=== PATIENT | male | born 1945 | race Caucasian/White ===

== ENCOUNTER 2017-04-20 17:54 | Emergency (ER) | payer MEDICARE, BC ==
--- NOTE | 2017-04-20 18:45 | Emergency Department Record ---
History of Present Illness - General Chief complaint: Rectal bleeding Stated complaint: RECTAL BLEEDING Time Seen by Provider: 04/20/17 18:41 Source: Patient Mode of Arrival: Ambulatory Limitations: No limitations - History of Present Illness Initial comments: 72 yo male presents to ED with a CC of "pink on the toilet paper when I wiped this evening". Patient denies rectal pain, bleeding with stool, or weakness symptoms. Patient reports that he was recently admitted to [facility] for a "mild heart attack", was checked for blood in the stool on 04/15 as part of an anemia evaluation which was negative. Patient is taking aspirin and plavix following his heart attack. complaint: Blood on toilet paper Onset/Timin -: Days(s) Radiation: None Severity scale (1-10): 2 Consistency: Intermittent Improves with: None Worsens with: None Associated Symptoms: Denies other symptoms - Related Data Home Medications Medication Instructions Recorded Confirmed Last Taken Amlodipine Besylate [Norvasc] 5 mg PO DAILY 07/31/14 04/20/17 1 Day Ago ~04/19/17 Aspirin Chewable 81 mg PO DAILY 07/31/14 04/20/17 1 Day Ago ~04/19/17 Atorvastatin Calcium [Lipitor] 20 mg PO QHS 07/31/14 04/20/17 1 Day Ago ~04/19/17 Hydrochlorothiazide 25 mg PO DAILY 07/31/14 04/20/17 1 Day Ago [Hydrochlorothiazide] ~04/19/17 Losartan Potassium [Losartan 100 mg PO DAILY 07/31/14 04/20/17 1 Day Ago Potassium] ~04/19/17 Nitroglycerin [Nitrodur] 1 ea SL ASDIR 07/31/14 04/20/17 1 Day Ago ~04/19/17 Omeprazole [Omeprazole] 40 mg PO DAILY 07/31/14 04/20/17 1 Day Ago ~04/19/17 Citalopram Hydrobromide 40 mg PO DAILY 04/27/16 04/20/17 1 Day Ago [Citalopram HBr] ~04/19/17 Clopidogrel Bisulfate [Plavix] 75 mg PO DAILY 04/27/16 04/20/17 1 Day Ago ~04/19/17 Colestipol HCl 1 gm PO DAILY 04/27/16 04/20/17 1 Day Ago ~04/19/17 Donepezil HCl [Aricept] 10 mg PO DAILY 04/20/17 04/20/17 1 Day Ago ~04/19/17 Hydrocodone/Acetaminophen [[place] 1 each PO QID PRN 04/20/17 04/20/17 1 Day Ago 10-325 Tablet] ~04/19/17 Allergies Allergy/AdvReac Type Severity Reaction Status Date / Time Penicillins [PENICILLINS] Allergy Unknown PT UNSURE Verified 04/20/17 18:19 OF REACTION theophylline anhydrous Allergy Unknown PT UNSURE Verified 04/20/17 18:19 [From RAVEN-DUR] OF REACTION lemon oil Allergy ITCHING Verified 04/20/17 18:19 Sulfa (Sulfonamide Allergy PT UNSURE Verified 04/20/17 18:19 Antibiotics) OF REACTION Travel Screening - Travel/Exposure Within Last 30 Days Have you traveled within the last 30 days?: No - Travel/Exposure Within Last Year Have you traveled outside the [place] in the last year?: No - Additonal Travel Details Have you been exposed to anyone with a communicable illness?: No - Travel Symptoms Symptom Screening: None Review of Systems Constitutional: Denies: Chills, Fever, Malaise, Night sweats Eyes: Denies: Eye discharge, Eye pain ENT: Denies: Congestion, Ear pain, Epistaxis Respiratory: Denies: Cough, Dyspnea Cardiovascular: Denies: Chest pain, Dyspnea on exertion Endocrine: Denies: Fatigue, Heat or cold intolerance Gastrointestinal: Denies: Abdominal pain, Hematochezia, Nausea, Vomiting Genitourinary: Denies: Incontinence, Retention Musculoskeletal: Denies: Arthralgia, Back pain, Gout, Joint swelling Skin: Denies: Bruising Neurological: Denies: Abnormal gait, Confusion, Headache, Tingling Psychiatric: Denies: Anxiety Hematological/Lymphatic: Denies: Anemia, Blood Clots Past Medical History - SOCIAL HISTORY Smoking Status: Former smoker Alcohol Use: None Drug Use: None - RESPIRATORY Hx Respiratory Disorders: No Hx COPD: Yes - CARDIOVASCULAR Hx Cardio Disorders: Yes Hx Heart Attack: Yes (x7) Hx Hypertension: Yes - NEURO Hx Neuro Disorders: No - GI Hx GI Disorders: Yes Hx Reflux: Yes - Hx Genitourinary Disorders: No - ENDOCRINE Hx Endocrine Disorders: No - MUSCULOSKELETAL Hx Musculoskeletal Disorders: No - PSYCH Hx Psych Problems: No - HEMATOLOGY/ONCOLOGY Hx Hematology/Oncology Disorders: No Family Medical History Any Significant Family History?: Yes Hx Heart Disease: Mother, Brother/Sister Physical Exam - General General Appearance: Alert, Oriented x3, Cooperative, No acute distress Limitations: No limitations - Head Head exam: Atraumatic, Normocephalic, Normal inspection Head exam detail: negative: Abrasion, Contusion, Don's sign, General tenderness, Hematoma, Laceration - Eye Eye exam: Normal appearance. negative: Conjunctival injection, Periorbital swelling, Periorbital tenderness, Scleral icterus - ENT Ear exam: negative: Auricular hematoma, Auricular trauma Nasal Exam: negative: Active bleeding, Discharge, Dried blood, Foreign body Mouth exam: negative: Drooling, Laceration, Muffled voice, Tongue elevation - Neck Neck exam: Normal inspection. negative: Meningismus, Tenderness - Respiratory Respiratory exam: Normal lung sounds bilaterally. negative: Respiratory distress, Rhonchi, Stridor, Wheezes - Cardiovascular Cardiovascular Exam: Regular rate, Normal rhythm, Normal heart sounds - GI/Abdominal GI/Abdominal exam: Soft. negative: Distended, Rebound, Rigid, Tenderness - Rectal Rectal exam: Heme (-) stool. negative: Hemorrhoids - Extremities Extremities exam: negative: Pedal edema, Tenderness - Back Back exam: Denies: CVA tenderness (R), CVA tenderness (L) - Neurological Neurological exam: Alert, Normal gait, Oriented X3 - Psychiatric Psychiatric exam: Normal affect, Normal mood - Skin Skin exam: Normal color. negative: Abrasion Type of lesion: negative: abrasion Course Vital Signs 04/20/17 18:13 Temperature 97.8 F Pulse Rate [ 45 L Pulse Ox Probe] Respiratory 18 Rate Blood Pressure 136/81 [Right Arm] Pulse Ox 95 - Reevaluation(s) Reevaluation #1: 04/20/17 19:18 Labs reviewed, Hgb 13.9, labs are otherwise grossly unremarkable for an acute process. Patient up to the bathroom numerous times without weakness or dizziness, labs reviewed with patient and his and appears improved from previous. Patient reports that he is ready to go home, and appears stable for discharge at this time. Medical Decision Making - Lab Data Result diagrams: 04/20/17 18:48 04/20/17 18:48 Disposition Disposition: Discharge Clinical Impression: Bright red blood per rectum Disposition: Home, Self-Care Condition: (2) Stable Instructions: Rectal Bleeding (ED) Additional Instructions: Return to ED if your symptoms worsen or if you have any concerns. Follow-up with your family doctor in 3-5 days as directed. Forms: Patient Portal Access Time of Disposition: 19:19
[2017-04-20 18:59] LABS: BASO % 1.1 % (0-6); EOS % 6.9 % (0-6); GRAN % 48.4 % (47-80); HEMATOCRIT 42.5 % (42.0-52.0); HEMOGLOBIN 13.9 gm/dl (14.0-18.0); LYMPH % 32.9 % (16-45); MEAN CELL VOLUME 88.2 fl (81-97); MEAN CORPUSCULAR HEMOGLOBIN 28.8 pg (27-33); MEAN CORPUSCULAR HGB CONC 32.7 g/dl (32-36); MEAN PLATELET VOLUME 9.4 fl (7.4-10.4); MONO % 10.7 % (0-9); PLATELET COUNT 271 K/uL (130-400); RED BLOOD COUNT 4.82 M/uL (4.40-5.70); RED CELL DISTRIBUTION WIDTH 13.7 % (11.5-14.5); WHITE BLOOD COUNT W/O DIFF 5.2 K/uL (4.2-12.2)
[2017-04-20 19:12] LABS: ALB/GLOB RATIO 1.3 (1.1-1.8); ALBUMIN 3.8 gm/dL (3.5-5.0); ALKALINE PHOSPHATASE 68 U/L (38-126); ALT/SGPT 25 U/L (21-72); ANION GAP 5.6 (7-16); AST/SGOT 15 U/L (17-59); BILIRUBIN,TOTAL 0.86 mg/dL (0.2-1.3); BLOOD UREA NITROGEN 21 mg/dL (9-20); CARBON DIOXIDE 25.4 mmol/L (22-30); EST GLOMERULAR FILTRATION RATE > 60 ml/min; GLUCOSE,RANDOM 79 mg/dL (70-110); TOTAL PROTEIN 6.7 gm/dL (6.3-8.2)
== END 2017-04-20 19:20 | disposition home or self-care (01) ==
LOC: ER 17:54
DX: K62.5 Hemorrhage of anus and rectum (principal); J44.9 Chronic obstructive pulmonary disease, unspecified; I10 Essential (primary) hypertension; I25.2 Old myocardial infarction; Z79.02 Long term (current) use of antithrombotics/antiplatelets; Z87.891 Personal history of nicotine dependence
CPT/HCPCS: 80053; 85025; 99283

== ENCOUNTER 2017-10-28 19:47 | Observation (INO) | payer MEDICARE, BC ==
[2017-10-28] MEDS ORDERED: 0.9 % SODIUM CHLORIDE 1000ML 1,000 ML IV ONE (19:52)
--- NOTE | 2017-10-28 19:59 | Emergency Department Record ---
History of Present Illness - General Stated Complaint: SYNCOPY Time Seen by Provider: 10/28/17 19:51 Source: Patient, Family, EMS Mode of Arrival: Ambulatory Limitations: No limitations - History of Present Illness Initial Comments: 72 yo male presents after a syncopal spell at home. He was walking in his bedroom and passed out. The patient has memory issues and he does not recall the event. The witnessed the event. The patient had just gone to the bathroom. She reports that he vomited once in the bathroom. He was walking out of the bathroom past the bed and slumped over. She states she estimated he was "out of it" for about 2 minutes. No shaking or seizure. No vomiting or incontinence. No cyanosis or loss of breathing. He stated to EMS his low abdomen was painful. At this time he states he does not have any pain or complaints. His states he did have a few loose stools today as well. PCP Maggie Ellington. He does have a history of CAD with chronic bradycardia the last several years. His baseline HR is about 45 per the family. 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 Complaint: Collapsed, Other (abdominal pain) -: Minutes(s) Prodromal Symptoms: Nausea/vomiting Description of Event: Other (slumped over) -: Minutes(s) (2) Injuries Sustained Associated with Event: None Current Symptoms: None History: History of CAD Treatments Prior to Arrival: None - [place] Coma Scale Eye Response: (4) Open spontaneously Motor Response: (6) Obeys commands Verbal Response: (5) Oriented [place] Total: 15 - Related Data Home Medications Medication Instructions Recorded Confirmed Last Taken Pantoprazole Sodium [Protonix] 40 mg PO DAILY 10/28/17 10/28/17 Unknown Allergies Allergy/AdvReac Type Severity Reaction Status Date / Time Penicillins [PENICILLINS] Allergy Unknown PT UNSURE Verified 04/20/17 18:19 OF REACTION theophylline anhydrous Allergy Unknown PT UNSURE Verified 04/20/17 18:19 [From RAVEN-DUR] OF REACTION lemon oil Allergy ITCHING Verified 04/20/17 18:19 Sulfa (Sulfonamide Allergy PT UNSURE Verified 04/20/17 18:19 Antibiotics) OF REACTION Review of Systems Constitutional: Denies: Chills, Fever, Malaise, Weakness Eyes: Denies: Eye discharge, Eye pain, Photophobia, Vision change ENT: Denies: Congestion, Ear pain, Throat pain Respiratory: Denies: Cough, Dyspnea, Hemoptysis, Stridor, Wheezes Cardiovascular: Reports: As per HPI, Syncope. Denies: Chest pain, Edema, Palpitations Endocrine: Denies: Fatigue, Polydipsia, Polyuria Gastrointestinal: Reports: As per HPI, Abdominal pain, Diarrhea (few loose stools today), Nausea, Vomiting Genitourinary: Denies: Dysuria, Frequency, Hematuria Musculoskeletal: Reports: Back pain (chronic). Denies: Arthralgia, Myalgia Skin: Denies: Bruising, Change in color, Rash Neurological: Reports: Confusion (ad terminal makeup operator dementia). Denies: Headache, Numbness, Tremors, Vertigo, Weakness Psychiatric: Denies: Anxiety Hematological/Lymphatic: Denies: Anemia, Blood Clots, Easy bleeding, Easy bruising, Swollen glands Past Medical History - SOCIAL HISTORY Smoking Status: Former smoker Drug Use: None - RESPIRATORY Hx Respiratory Disorders: No Hx COPD: Yes - CARDIOVASCULAR Hx Cardio Disorders: Yes Hx Heart Attack: Yes (x7) Hx Hypertension: Yes - NEURO Hx Neuro Disorders: No - GI Hx GI Disorders: Yes Hx Reflux: Yes - Hx Genitourinary Disorders: No - ENDOCRINE Hx Endocrine Disorders: No - MUSCULOSKELETAL Hx Musculoskeletal Disorders: No - PSYCH Hx Psych Problems: No - HEMATOLOGY/ONCOLOGY Hx Hematology/Oncology Disorders: No Family Medical History Hx Heart Disease: Mother, Brother/Sister Physical Exam - General General Appearance: Alert, Cooperative, No acute distress, Other (No acute distress, conversational, poor short term memory and 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 negative: Conjunctival injection, Scleral icterus - ENT ENT exam: Normal exam, Mucous membranes moist Ear exam: Normal external inspection Nasal Exam: Normal inspection Mouth exam: Normal external inspection - Neck Neck exam: Normal inspection, Full ROM. negative: Tenderness - Respiratory Respiratory exam: Normal lung sounds bilaterally. negative: Respiratory distress, Rhonchi, Stridor, Wheezes - Cardiovascular Cardiovascular Exam: Regular rate, Normal rhythm, Normal heart sounds Peripheral Pulses: 2+: Radial (R), Radial (L) - GI/Abdominal GI/Abdominal exam: Soft, Tenderness (tender RLQ, soft, no mass or bruising) - Rectal Rectal exam: Deferred - exam: Deferred - Extremities Extremities exam: Normal inspection, Full ROM, Normal capillary refill. negative: Pedal edema, Tenderness - Back Back exam: Reports: Normal inspection, Full ROM. Denies: CVA tenderness (R), CVA tenderness (L), Muscle spasm, Rash noted, Tenderness - Neurological Neurological exam: Alert, CN II-XII intact, Oriented X3 (At baseline). negative : Motor sensory deficit - Psychiatric Psychiatric exam: Normal affect, Normal mood Course - Reevaluation(s) Reevaluation #1: 10/28/17 20:39 EKG 19:56 sinus Bradycardia rate of 47, intervals normal, axis normal, ST normal No changes from the 03/09/15 EKG 10/28/17 20:40 10/28/17 21:44 The labs were reviewed The CBC demonstrated a hgb of 11 The CMP demonstrated no acute process The lactic acid was normal The Troponin is normal 10/28/17 22:23 No acute changes on the CT or the abdomen and pelvis. Numerous chronic findings. Refer to full report for follow up No acute changes on the HCT. Medical Decision Making - Lab Data Result diagrams: 10/28/17 19:30 10/28/17 19:30 Disposition Disposition: Admit Clinical Impression: Syncope, Abdominal pain Disposition: Still a Patient at [facility] Decision to Admit: Admit from ER Decision to Admit Date: 10/28/17 Decision to Admit Time: 22:24 Condition: (1) Good Time of Disposition: 22:24 Quality - Quality Measures Quality Measures: N/A - Blood Pressure Screening Does Patient Have Any of the Following: Active Dx of HTN Blood Pressure Classification: Hypertensive Reading Systolic Measurement: 163 Diastolic Measurement: 65 Screening for High Blood Pressure: < Pre-Hypertensive BP, F/U Documented > [ [id number]] Pre-Hypertensive Follow-up Interventions: Referral to alternative/primary care provider.
[2017-10-28 20:16] LABS: BASO % 0.7 % (0-6); GRAN % 58.6 % (47-80); HEMATOCRIT 37.7 % (42.0-52.0); HEMOGLOBIN 11.6 gm/dl (14.0-18.0); LYMPH % 23.5 % (16-45); MEAN CELL VOLUME 91.3 fl (81-97); MEAN CORPUSCULAR HGB CONC 30.8 g/dl (32-36); MEAN PLATELET VOLUME 9.4 fl (7.4-10.4); MONO % 11.2 % (0-9); PLATELET COUNT 317 K/uL (130-400); RED BLOOD COUNT 4.13 M/uL (4.40-5.70); RED CELL DISTRIBUTION WIDTH 13.9 % (11.5-14.5); WHITE BLOOD COUNT W/O DIFF 5.7 K/uL (4.2-12.2)
[2017-10-28 20:23] LABS: INR 0.96; PARTIAL THROMBOPLASTIN TIME 25.9 SECONDS (24.5-39.1); PROTHROMBIN TIME (PATIENT) 10.4 SECONDS (9.5-12.1)
[2017-10-28 20:24] LABS: BLOOD UREA NITROGEN 21 mg/dL (8-23); CREATININE 0.9 mg/dL (0.7-1.2); EST GLOMERULAR FILTRATION RATE > 60 mL/min
[2017-10-28 20:25] LABS: TOTAL PROTEIN 6.2 g/dL (6.6-8.7)
[2017-10-28 20:27] LABS: GLUCOSE,RANDOM 106 mg/dL (74-109)
[2017-10-28 20:28] LABS: URINE APPEARANCE CLEAR; URINE BILIRUBIN NEGATIVE (NEGATIVE); URINE BLOOD NEGATIVE (NEGATIVE); URINE COLOR YELLOW; URINE GLUCOSE (UA) NEGATIVE (NEGATIVE); URINE KETONE NEGATIVE (NEGATIVE); URINE LEUKOCYTE ESTERASE NEGATIVE (NEGATIVE); URINE NITRITE NEGATIVE (NEGATIVE); URINE PROTEIN NEGATIVE (NEGATIVE); URINE UROBILINOGEN 0.2 E.U./dL (0.20 - 1.00)
[2017-10-28 20:29] LABS: ALBUMIN 3.4 g/dL (4.0-5.0); ALT/SGPT 14 U/L (<41); AST/SGOT 11 U/L (10.0-50.0); LACTIC ACID 1.4 mmol/L (0.5-2.2)
[2017-10-28 20:30] LABS: ALKALINE PHOSPHATASE 62 U/L (40-129); BILIRUBIN,DIRECT < 0.2 mg/dL (0-0.3); LIPASE 44 U/L (13-60)
[2017-10-28] MEDS ORDERED: HYDROCODONE/APAP 10/325 TABLET PO PRN (23:20)
[2017-10-29 06:46] LABS: BASO % 0.7 % (0-6); EOS % 7.8 % (0-6); GRAN % 54.7 % (47-80); HEMATOCRIT 36.6 % (42.0-52.0); HEMOGLOBIN 11.8 gm/dl (14.0-18.0); LYMPH % 25.3 % (16-45); MEAN CELL VOLUME 90.4 fl (81-97); MEAN CORPUSCULAR HEMOGLOBIN 29.1 pg (27-33); MEAN CORPUSCULAR HGB CONC 32.2 g/dl (32-36); MEAN PLATELET VOLUME 9.1 fl (7.4-10.4); MONO % 11.5 % (0-9); PLATELET COUNT 293 K/uL (130-400); RED BLOOD COUNT 4.05 M/uL (4.40-5.70); RED CELL DISTRIBUTION WIDTH 13.9 % (11.5-14.5)
[2017-10-29 07:01] LABS: BLOOD UREA NITROGEN 17 mg/dL (8-23); CREATININE 0.9 mg/dL (0.7-1.2); EST GLOMERULAR FILTRATION RATE > 60 mL/min; GLUCOSE,RANDOM 101 mg/dL (74-109)
[2017-10-29] MEDS ORDERED: LOSARTAN POTASSIUM 100 MG TABLET PO SCH (10:00)
[2017-10-29] MEDS ORDERED: DONEPEZIL HCL 5 MG TABLET PO SCH (10:00)
[2017-10-29] MEDS ORDERED: HYDROCHLOROTHIAZIDE 25 MG TABLET PO SCH (10:00)
[2017-10-29] MEDS ORDERED: CITALOPRAM 20 MG TABLET PO SCH (10:00)
[2017-10-29] MEDS ORDERED: ASPIRIN 81 MG CHEWABLE TABLET PO SCH (10:00)
[2017-10-29] MEDS ORDERED: PANTOPRAZOLE SODIUM 40 MG TABLET PO SCH (10:00)
--- NOTE | 2017-10-29 11:15 | CT SCAN REPORT ---
EXAM: CT SCAN ABDOMEN/PELVIS W CONTRAST HISTORY: PAIN. TECHNIQUE: CT of the abdomen and pelvis is performed following IV administration of 100 mL Omnipaque-300 contrast. Oral contrast also utilized. COMPARISON: 05/17/16 CT. FINDINGS: Limited evaluation of the lung bases unremarkable. Degenerative changes throughout the lumbar spine. Subjective wall thickening of the stomach may in part relate to incomplete distention. This could be further assessed with endoscopy. Status post cholecystectomy. Mild biliary ductal dilatation likely a function of post cholecystectomy state. Splenic granulomata. The adrenal glands, pancreas are unremarkable. Multiple bilateral renal cysts. Aortobi-iliac endovascular stent great with mild infrarenal abdominal aortic aneurysm, stable measuring 2.8 x 2.7 cm. No periaortic fluid collection. No free air or free fluid. Sigmoid diverticulosis without CT evidence for diverticulitis. Enlargement of the prostate with multiple calcifications. Correlate with PSA levels. Normal appendix. Subjective urinary bladder wall thickening may relate to incomplete distention. Nonspecific, nonenlarged inguinal chain nodes. IMPRESSION: 1. SUBJECTIVE WALL THICKENING OF THE STOMACH. THIS COULD BE FOLLOWED WITH ENDOSCOPY. 2. STABLE ENDOVASCULAR STENT GRAFT IN PLACE WITH STABLE MILD INFRARENAL ABDOMINAL AORTIC ANEURYSM. 3. ENLARGEMENT OF THE PROSTATE. CORRELATE WITH PSA LEVELS. 4. SIGMOID DIVERTICULOSIS WITHOUT CT EVIDENCE FOR DIVERTICULITIS. JOB NUMBER: [id number] [facility]
--- NOTE | 2017-10-29 11:46 | CT SCAN REPORT ---
EXAM: CT SCAN HEAD WO CONTRAST HISTORY: PAIN. TECHNIQUE: CT brain without. COMPARISON: 11/14/14 CT. FINDINGS: Globes are intact. Paranasal sinuses and mastoid air-cells are unremarkable. No displaced or depressed skull fracture. No intra- or extra- axial hemorrhage. Diffuse atrophy with small vessel ischemic change. CT limited for evaluation of acute infarct. No CT evidence for large or territorial acute infarct. No mass or midline shift. IMPRESSION: ATROPHY. SMALL VESSEL ISCHEMIC CHANGE. JOB NUMBER: [id number] [facility]
--- NOTE | 2017-10-29 12:38 | Discharge Note ---
VTE H&P Assessment - Risk for VTE Risk for VTE: No Risk Level: Very Low Risk Assessment Date: 10/29/17 Risk Assessment Time: 12:34 VTE Orders Placed or Will Be Placed: No VTE Reason for No Prophylaxis: Not Indicated Discharge Medications - Discharge Medications Home Medications: Ambulatory Orders Amlodipine Besylate [Norvasc] 5 mg PO DAILY 07/31/14 [Last Taken 1 Day Ago ~] Aspirin Chewable 81 mg PO DAILY 07/31/14 [Last Taken 1 Day Ago ~04/19/17] Atorvastatin Calcium [Lipitor] 20 mg PO QHS 07/31/14 [Last Taken 1 Day Ago ~] Hydrochlorothiazide 25 mg PO DAILY 07/31/14 [Last Taken 1 Day Ago ~04/19/17] Losartan Potassium 100 mg PO DAILY 07/31/14 [Last Taken 1 Day Ago ~04/19/17] Nitroglycerin 1 ea SL ASDIR 07/31/14 [Last Taken 1 Day Ago ~04/19/17] Citalopram Hydrobromide [Citalopram HBr] 40 mg PO DAILY 04/27/16 [Last Taken 1 Day Ago ~04/19/17] Donepezil HCl [Aricept] 10 mg PO DAILY 04/20/17 [Last Taken 1 Day Ago ~04/19/17] Hydrocodone/Acetaminophen [[place] 10-325 Tablet] 1 each PO QID PRN 04/20/17 [ Last Taken 1 Day Ago ~04/19/17] Pantoprazole Sodium [Protonix] 40 mg PO DAILY 10/28/17 [Last Taken Unknown] Discharge Note - Date Date of Discharge Note: 10/29/17 Disposition: Home, Self-Care Condition: (1) Good Additional Instructions: follow up with Dr. Raman in one week continue home meds holter monitor Referrals: MIRNA RAMAN [Primary Care Provider] -
[2017-10-29] MEDS ORDERED: ATORVASTATIN 20 MG TABLET PO SCH (22:00)
--- NOTE | 2017-10-31 12:50 | Discharge Summary ---
DATE: 10/29/2017 at 12:28 p.m. DISCHARGE DIAGNOSES: 1. Vasovagal syncope. 2. History of bradycardia, asymptomatic. 3. Diarrhea. 4. History of coronary artery disease with multiple stents placed and myocardial infarction x5 to x7. He is a poor historian. 5. History of abdominal aortic aneurysm below the kidneys, repaired with a stent. 6. History of hypertension. 7. History of hypercholesterolemia. 8. Dementia. ATTENDING PHYSICIAN: Catarino Rome DO REASON FOR HOSPITALIZATION: Syncope. This 72-year-old male had vomited in the bathroom, walked out of the bathroom and collapsed. Was out of it for about 2 minutes according to the who observed the event. She said that EMS was called. By the time EMS got there, he was only complaining of lower abdominal pain. He was transported to the hospital and he had no abdominal pain upon arrival to the ER. He did not have any signs of seizure activity or cyanosis during the episode. No incontinence of urine or stool. He does not recall the events at all because of his dementia. He does not state he has any current chest pain, abdominal pain, or any pain at all. He did state he had 3 loose stools just today before my evaluation. His states that he has loose stools on a daily basis. The family told me he had chronic bradycardia with his baseline heart rate of 45. 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 SIGNIFICANT FINDINGS: EKG x2 showed no acute changes, bradycardia x2. Cardiac enzymes x2 were negative. The electrolytes were normal. CBC with WBC 6000, hemoglobin 11.8. 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 CT scan of the abdomen revealed thickening of the stomach, possible EGD down the road, according to the radiologist, might be something reasonable to consider. The abdominal aortic aneurysm stents are in place, no signs of leakage. Otherwise, no acute findings. THERAPY PROVIDED: production wood craftsman and serial cardiac enzymes. HOSPITAL COURSE: Unremarkable. Feeling well. Walking around the room without difficulty. Wants to go home. CONDITION ON DISCHARGE: Much improved. DISCHARGE INSTRUCTIONS: Follow up with Dr. Raman in 1 week. Holter monitor to assess if he is having any other slower bradycardic episodes when ambulating at home. Continue his home medications of Protonix 40 mg daily, losartan 100 mg daily, hydrochlorothiazide 25 mg daily, Aricept 10 mg daily, Celexa 40 mg daily, Lipitor 20 mg daily, aspirin 81 mg daily, amlodipine 5 mg daily. Return to the hospital if any more difficulties. CC: Dr. Danisha MICHELLE
--- NOTE | 2017-10-31 12:54 | History and Physical Report ---
DATE: 10/28/2017 CHIEF COMPLAINT: Syncope. HISTORY OF PRESENT ILLNESS: This 72-year-old male was in the bathroom and he walked out of the bathroom and passed out. observed the event. He was out of it for about 2 minutes and no shaking or seizure activity. He does have a history of dementia and memory issues. He does not remember the event at all. He was brought into the emergency department. No cyanosis or loss of breathing. He did vomit just prior to this episode. He had diarrhea. He vomited once in the bathroom and he walked out of the bathroom and passed out. EMS was called and he reported to them low abdominal pain; however, upon arrival to the ER, the pain was gone. The states that he has a few loose stools every day as well. His family doctor is Dr. Yue Raman. He has had coronary artery disease in the past. Looking back at his chart, he had 5 MIs, 2 stents. 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 He has chronic bradycardia for the last several years. His baseline heart rate is about 45. PAST MEDICAL HISTORY: Coronary artery disease, [place] x5, 2 stents placed in 2013. [employer] shell core and molding supervisor Dr. Miramontes. Dementia. He has hypertension, GERD, hypercholesterolemia. PAST SURGICAL HISTORY: Cholecystectomy, cardiac stents x3. MEDICATIONS: On admission, 1. Protonix 40 mg daily. 2. Nitroglycerin p.r.n. 3. Losartan 100 mg daily. 4. [place] 10 mg p.r.n. 4 times a day. 5. Hydrochlorothiazide 25 mg daily. 6. Aricept 10 mg daily. 7. Citalopram hydrobromide 40 mg daily. 8. Atorvastatin 20 mg at bedtime. 9. Aspirin 81 mg daily. 10. Amlodipine 5 mg daily. ALLERGIES: PENICILLIN, THEOPHYLLINE, SULFA, LEMON OIL. SOCIAL HISTORY: He is a former smoker, stopped about 5 months ago. FAMILY HISTORY: Mother has dementia. Heart disease with the mother, brother, and sister. REVIEW OF SYSTEMS: HEENT: No upper respiratory infection symptoms, cough, cold, or congestion. Cardiovascular: No chest pain, palpitations, or arrhythmia. See Chief Complaint. He had a syncope episode after vomiting in the bathroom. Respiratory: No cough, cold, or congestion. He did cigarettes and stopped 5 months ago. Gastrointestinal: No nausea, vomiting, diarrhea, black stools, or bloody stools. Genitourinary: No dysuria, hematuria, frequency, or burning on urination. Musculoskeletal: No joint or bone abnormalities. Neurological: No CVA, paralysis, or paresthesias but he does have dementia. Endocrine: No diabetes or thyroid disease. Integument: No rash, ulcers, change in moles, or yellow skin. PHYSICAL EXAMINATION: VITALS: Height 5 feet 5 inches, weight 198 pounds. Temperature 97.6, pulse 49, blood pressure 156/65, respiratory rate 18, pulse ox 97% on room air. HEENT: Pupils are equal, round, and reactive to light and accommodation. Extraocular muscles are intact. Throat is clear. Nose is clear. Tympanic membranes are estrada. NECK: Supple. No jugular venous distention. No hepatojugular reflux. No carotid bruits. Thyroid is smooth. CARDIOVASCULAR: Regular rate and rhythm without murmurs, clicks, rubs, or gallops. RESPIRATORY: Clear to auscultation and percussion. ABDOMEN: Soft, nontender. No hepatosplenomegaly, no masses, no tenderness. Bowel sounds are active. No bruits. EXTREMITIES: No pitting edema. No cyanosis, no clubbing. Full range of motion. Peripheral pulses are good. BREASTS: Normal male breasts. RECTAL: Exam deferred. GENITALIA: Deferred. NEUROLOGIC: Cranial nerves II-XII intact. No gross defects. Sensation normal, strength normal. Deep tendon reflexes equal bilaterally with Babinski negative. MENTAL STATUS: Alert and oriented x3. LABORATORY DATA: Cardiac enzymes x2 negative. EKG x2 showing only sinus bradycardia, no acute changes. CT scan of the abdomen showing thickening of the stomach and abdominal aortic aneurysm with a stent placed. CBC with 6000, hemoglobin 11.8. Electrolytes are normal. IMPRESSION: 1. Vasovagal syncope. 2. Diarrhea. 3. Bradycardia. 4. History of coronary artery disease. 5. History of aortic abdominal aneurysm repair with stent. 6. History of gastroesophageal reflux disease. 7. History of hypercholesterolemia. 8. Dementia. PLAN: At this point he is stable and can be discharged home. He is an observation patient. We will discuss the findings with his , Keila. VIVIANA
== END 2017-10-29 14:23 | disposition home or self-care (01) ==
LOC: ER 19:47 → MEDSURG 23:05
PROVIDERS: ADMIT Emergency Medicine; ATTEND Emergency Medicine
DX: R55 Syncope and collapse (principal); R19.7 Diarrhea, unspecified; R00.1 Bradycardia, unspecified; I25.10 Atherosclerotic heart disease of native coronary artery without angina pectoris; K21.9 Gastro-esophageal reflux disease without esophagitis; E78.00 Pure hypercholesterolemia, unspecified; F03.90 Unspecified dementia, unspecified severity, without behavioral disturbance, psychotic disturbance, mood disturbance, and anxiety
CPT/HCPCS: 70450; 74177; 80048; 80076; 81003; 83605; 83690; 83735; 84484; 85025; 85610; 85730; 93005; 93010; 93041; 93225; 93226; 99220; 99285